=== PATIENT | female | born 1940 | race Caucasian/White ===

== ENCOUNTER → 2017-07-06 | Outpatient (CLI) | payer OTHER ==
[~2017-07-06] MED LIST: AGGRENOX1 CAPSULE PO; AMITRIPTYLINE H10 M1 PO; AMITRIPTYLINE H10 MG PO; ASPERDRINK81 MG PO; ASPIRIN E.C.81 M1 PO; ASPIRIN EC325 MG PO; BACTROBAN NASAL1 G1 BOTH NARES; BIOTIN 5000MCG PO; BIOTIN5 M1 PO; Bactrim,Septra DS 80 PO; Biotin PO; CALCIUM 600 +1 EAC3 PO; CALCIUM600 MG PO; CELEBREX200 MG PO; CHOLESTYRAMINE L4 GM PO; CIPRO250 MG PO; CITALOPRAM HBR PO; CITALOPRAM HBR10 MG PO; CRESTOR10 MG PO; CRESTOR5 MG PO; CYANOCOBALAM1000 MCG PO; Ceftin PO; Cipro PO; DILANTIN100 MG PO; ELAVIL10 MG PO; ENDOCET 5-3251 EACH PO; Ecotrin PO; Elavil PO; FLAGYL500 MG PO; GLUCOPHAGE1000 MG PO; GLUCOPHAGE850 MG PO; HYDROCODON-ACE1 EACH PO; LIPITOR40 MG PO; LISINOPRIL-HCT1 EAC3 PO; LISINOPRIL10 MG PO; LITE COAT ASPI325 M1 PO; Lipitor PO; METFORMIN HCL1000 MG PO; METFORMIN HCL500 MG PO; METOPROLOL SUC200 MG PO; MULTIVITAMINS1 EAC2 PO; NEXIUM40 MG PO; OMEPRAZOLE40 M1 PO; PHENERGAN12.5 M1 PO; PHENYTOIN SODI100 M1 PO; PRILOSEC20 MG PO; PRINZIDE 20-121 EACH PO; Phenergan PO; TRICOR145 MG PO; TYLENOL REGULA325 MG PO; Tylenol Regular Stre PO; ZOFRAN4 MG PO
== END | disposition home or self-care (01) ==
DX: M17.11 Unilateral primary osteoarthritis, right knee (principal); R29.3 Abnormal posture; R26.2 Difficulty in walking, not elsewhere classified; M79.604 Pain in right leg; M25.561 Pain in right knee; M25.661 Stiffness of right knee, not elsewhere classified; M62.81 Muscle weakness (generalized); Z74.1 Need for assistance with personal care
CPT/HCPCS: 97110 GP; 97150 GO; 97161 GP; 97165 GO; G8978 GP; G8979 GP; G8980 GP; G8987 GO; G8988 GO; G8989 GO

== ENCOUNTER 2017-08-08 22:02 | Inpatient (IN) | payer OTHER ==
[~2017-08-08] VITALS: Ht 165.1 cm; Wt 82.3 kg
[~2017-08-08 22:02] MED LIST changes: +IRON325 M1 PO
[2017-08-09 09:03] LABS: POINT-OF-CARE METER ID UU14174212
[2017-08-09 09:46] VITALS: BP 160/69
[2017-08-09 09:52] VITALS: BP 160/69
[2017-08-09 16:03] LABS: POINT-OF-CARE METER ID UU13113675
[2017-08-09 16:31] VITALS: BP 135/62
[2017-08-09 19:34] VITALS: BP 158/65
[2017-08-10 00:22] VITALS: BP 140/76
[2017-08-10 04:23] VITALS: BP 152/61
[2017-08-10 06:38] LABS: HEMATOCRIT 32.3 % (36.0-46.0); MCV 97.3 FL (83-99)
[2017-08-10 07:06] LABS: ANION GAP 10 MEQ/L (2-14); CHLORIDE 100 MEQ/L (99-109); GFR ESTIMATE (CALCULATED) > 59 mL/min/; GLUCOSE 140 mg/dL (70-99); POTASSIUM 4.3 MEQ/L (3.7-5.4); SAMPLE HEMOLYSIS CHECK 0; SAMPLE ICTERIC CHECK 0; SAMPLE LIPEMIA CHECK 0; SODIUM 137 MEQ/L (136-147); UREA NITROGEN (BUN) 13 mg/dL (9-23)
[2017-08-10 07:59] LABS: POINT-OF-CARE METER ID UU13113712
[2017-08-10 08:22] VITALS: BP 120/56
[2017-08-10 11:48] LABS: POINT-OF-CARE METER ID UU13113712
[2017-08-10 15:46] VITALS: BP 117/58
[2017-08-10 16:12] LABS: POINT-OF-CARE METER ID UU13113712
[2017-08-10 19:47] VITALS: BP 136/63
[2017-08-11 00:31] VITALS: BP 143/64
[2017-08-11 04:12] VITALS: BP 149/66
[2017-08-11 05:32] LABS: HEMATOCRIT 30.3 % (36.0-46.0); MCV 95.6 FL (83-99)
[2017-08-11 07:31] LABS: POINT-OF-CARE METER ID UU13113712
[2017-08-11 08:15] VITALS: BP 105/59
[2017-08-11] MEDS ORDERED: LOVENOX40 MG/0.4 SC (08:38)
[2017-08-11] MEDS ORDERED: ENDOCET 5-3251 EACH PO (08:39)
== END 2017-08-11 14:39 | DRG 470 ==
LOC: ENRESERV 22:02 → 2SOUTH 08-09 08:12 → 3WEST 08-09 08:12 → 2SOUTH 08-09 13:19 → 3WEST 08-09 16:14
PROVIDERS: Orthopaedic Surgery
PROC: 0SRC0J9 Replacement of Right Knee Joint with Synthetic Substitute, Cemented, Open Approach (ICD-10-PCS; principal; 2017-08-09)
DX: M17.11 Unilateral primary osteoarthritis, right knee (principal); M65.9 Synovitis and tenosynovitis, unspecified; E11.9 Type 2 diabetes mellitus without complications; K21.9 Gastro-esophageal reflux disease without esophagitis; G40.909 Epilepsy, unspecified, not intractable, without status epilepticus; E78.5 Hyperlipidemia, unspecified; E78.00 Pure hypercholesterolemia, unspecified; Z86.73 Personal history of transient ischemic attack (TIA), and cerebral infarction without residual deficits; Z87.891 Personal history of nicotine dependence
CPT/HCPCS: 36415; 80048; 82948; 85014; 85018; 86850; 86900; 86901; C1713; J0131; J0690; J1170; J1650; J1885; J2250; J2405; J7050; J7120

== ENCOUNTER 2018-04-26 16:01 | Inpatient (IN) | payer OTHER ==
[~2018-04-26] VITALS: Ht 165.1 cm; Wt 71.3 kg
[~2018-04-26 16:01] MED LIST changes: +LOVENOX40 MG/0.4 SC
[2018-04-26 17:26] LABS: BASOPHIL (%) 0.4 % (0-1); EOSINOPHIL (%) 0.8 % (0-5); EOSINOPHIL COUNT 0.1 K/uL (0-0.3); HEMATOCRIT 40.1 % (36.0-46.0); HEMOGLOBIN 13.8 G/DL (11.9-15.5); IMMATURE GRANULOCYTE (%) 0.2 % (0.0-0.7); LYMPHOCYTE (%) 36.3 % (15-42); MCH 32.5 PG (29.0-34.0); MCHC 34.4 G/DL (30.0-36.0); MCV 94.4 FL (83-99); MONOCYTE COUNT 0.6 K/uL (0-0.8); NEUTROPHIL (%) 55.3 % (45-76); NEUTROPHIL COUNT 4.6 K/uL (1.8-6.4); PLATELET COUNT 201 K/uL (156-360); RBC DIS.WIDTH-CV 12.7 % (11.8-14.6); RBC DIS.WIDTH-SD 43.4 % (39-53); RED BLOOD COUNT 4.25 M/uL (3.80-5.20); WHITE BLOOD COUNT 8.3 K/uL (4.1-10.2)
[2018-04-26 17:32] LABS: INTER. NORMALIZED RATIO 1.1
[2018-04-26 17:34] LABS: PTT 23.2 SEC (25-37)
[2018-04-26 17:40] LABS: APPEARANCE CLEAR ((CLEAR)); BILIRUBIN NEGATIVE; BLOOD NEGATIVE; COLOR YELLOW ((YELLOW)); GLUCOSE (STRIP) NEGATIVE; KETONES NEGATIVE; LEUKOCYTES TRACE; NITRITE NEGATIVE; PROTEIN (STRIP) NEGATIVE; SPECIFIC GRAVITY 1.006 (1.000-1.030); UROBILINOGEN 0.2 MG/DL (0.2-1.0)
[2018-04-26 17:43] LABS: CREATINE KINASE 54 IU/L (1-294); TOTAL CK 54 IU/L (1-294)
[2018-04-26 17:45] LABS: BACTERIA RARE /HPF; EPITHELIAL CELLS RARE /HPF; MUCUS NONE SEEN /LPF; RED BLOOD CELLS 0-5 /HPF (0-5); UCUL ADDED? YES
[2018-04-26 17:48] LABS: TROP-I INTERPRETATION NEGATIVE; TROPONIN-I < 0.01 ng/mL (0.0-0.30)
[2018-04-26 17:49] LABS: CK-MB 0.7 ng/mL (0.0-4.9); CKMB RELATIVE INDEX 1.3 (0.0-3.9)
[2018-04-26 18:27] LABS: CHLORIDE 99 MEQ/L (99-109); CREATININE 0.9 MG/DL (0.6-1.3); GFR ESTIMATE (CALCULATED) > 59 mL/min/; GLUCOSE 92 mg/dL (70-99); POTASSIUM 4.4 MEQ/L (3.7-5.4); SODIUM 137 MEQ/L (136-147); UREA NITROGEN (BUN) 13 mg/dL (9-23)
[2018-04-26] MEDS ORDERED: LO-DOSE ASPIRIN81 M1 PO (19:32)
[2018-04-26 19:48] LABS: ALBUMIN 4.2 G/DL (3.2-4.8); ALKALINE PHOSPHATASE 121 IU/L (3-129); ALT (GPT) 23 IU/L (3-49); AST (GOT) 31 IU/L (2-34); DIRECT BILIRUBIN 0.2 mg/dL (0.0-0.3); TOTAL BILIRUBIN 0.5 MG/DL (0.0-1.0)
[2018-04-27 00:38] LABS: APPEARANCE SL.HAZY ((CLEAR)); BILIRUBIN NEGATIVE; BLOOD NEGATIVE; COLOR YELLOW ((YELLOW)); GLUCOSE (STRIP) NEGATIVE; KETONES NEGATIVE; LEUKOCYTES SMALL; NITRITE POSITIVE; PROTEIN (STRIP) NEGATIVE; SPECIFIC GRAVITY 1.009 (1.000-1.030); UROBILINOGEN 0.2 MG/DL (0.2-1.0)
[2018-04-27 00:44] LABS: UCUL ADDED? YES
[2018-04-27 01:10] VITALS: BP 162/72
[2018-04-27 06:11] LABS: HEMATOCRIT 39.5 % (36.0-46.0); HEMOGLOBIN 13.1 G/DL (11.9-15.5); MCH 31.7 PG (29.0-34.0); MCHC 33.2 G/DL (30.0-36.0); MCV 95.6 FL (83-99); PLATELET COUNT 177 K/uL (156-360); RBC DIS.WIDTH-CV 12.7 % (11.8-14.6); RBC DIS.WIDTH-SD 44.7 % (39-53); RED BLOOD COUNT 4.13 M/uL (3.80-5.20); WHITE BLOOD COUNT 7.3 K/uL (4.1-10.2)
[2018-04-27 06:57] LABS: CHLORIDE 101 MEQ/L (99-109); CREATININE 0.8 MG/DL (0.6-1.3); GFR ESTIMATE (CALCULATED) > 59 mL/min/; GLUCOSE 81 mg/dL (70-99); SODIUM 140 MEQ/L (136-147); UREA NITROGEN (BUN) 12 mg/dL (9-23)
[2018-04-27 07:10] VITALS: BP 141/65
[2018-04-27 11:08] VITALS: BP 174/74
[2018-04-27 15:15] VITALS: BP 134/61
[2018-04-27 19:35] VITALS: BP 107/55
[2018-04-27 23:12] VITALS: BP 131/66
[2018-04-28 03:45] VITALS: BP 133/64
[2018-04-28 05:20] LABS: BASOPHIL (%) 0.6 % (0-1); EOSINOPHIL (%) 2.1 % (0-5); EOSINOPHIL COUNT 0.1 K/uL (0-0.3); HEMATOCRIT 39.6 % (36.0-46.0); HEMOGLOBIN 13.2 G/DL (11.9-15.5); IMMATURE GRANULOCYTE (%) 0.4 % (0.0-0.7); LYMPHOCYTE (%) 34.7 % (15-42); LYMPHOCYTE COUNT 1.8 K/uL (1.0-2.8); MCHC 33.3 G/DL (30.0-36.0); MCV 96.1 FL (83-99); MONOCYTE (%) 6.7 % (3-12); MONOCYTE COUNT 0.4 K/uL (0-0.8); NEUTROPHIL (%) 55.5 % (45-76); NEUTROPHIL COUNT 2.9 K/uL (1.8-6.4); PLATELET COUNT 173 K/uL (156-360); RBC DIS.WIDTH-CV 12.6 % (11.8-14.6); RBC DIS.WIDTH-SD 45.2 % (39-53); RED BLOOD COUNT 4.12 M/uL (3.80-5.20); WHITE BLOOD COUNT 5.3 K/uL (4.1-10.2)
[2018-04-28 06:19] LABS: ALBUMIN 3.9 G/DL (3.2-4.8); ALKALINE PHOSPHATASE 103 IU/L (3-129); ALT (GPT) 21 IU/L (3-49); AST (GOT) 25 IU/L (2-34); CHLORIDE 103 MEQ/L (99-109); CREATININE 0.7 MG/DL (0.6-1.3); GFR ESTIMATE (CALCULATED) > 59 mL/min/; GLUCOSE 94 mg/dL (70-99); POTASSIUM 3.9 MEQ/L (3.7-5.4); SODIUM 140 MEQ/L (136-147); TOTAL BILIRUBIN 0.4 MG/DL (0.0-1.0); TOTAL PROTEIN 6.2 G/DL (6.4-8.3); UREA NITROGEN (BUN) 8 mg/dL (9-23)
[2018-04-28 07:39] VITALS: BP 130/64
[2018-04-28 12:43] VITALS: BP 139/64
[2018-04-28 15:42] VITALS: BP 121/69
[2018-04-28 19:28] VITALS: BP 125/59
[2018-04-28 23:51] VITALS: BP 166/80
[2018-04-29 05:47] LABS: BASOPHIL (%) 0.3 % (0-1); EOSINOPHIL (%) 1.6 % (0-5); EOSINOPHIL COUNT 0.1 K/uL (0-0.3); HEMOGLOBIN 12.8 G/DL (11.9-15.5); IMMATURE GRANULOCYTE (%) 0.2 % (0.0-0.7); LYMPHOCYTE (%) 24.3 % (15-42); LYMPHOCYTE COUNT 2.1 K/uL (1.0-2.8); MCH 31.7 PG (29.0-34.0); MCHC 33.7 G/DL (30.0-36.0); MCV 94.1 FL (83-99); MONOCYTE (%) 7.4 % (3-12); MONOCYTE COUNT 0.7 K/uL (0-0.8); NEUTROPHIL (%) 66.2 % (45-76); NEUTROPHIL COUNT 5.8 K/uL (1.8-6.4); PLATELET COUNT 172 K/uL (156-360); RBC DIS.WIDTH-CV 12.5 % (11.8-14.6); RBC DIS.WIDTH-SD 43.4 % (39-53); RED BLOOD COUNT 4.04 M/uL (3.80-5.20); WHITE BLOOD COUNT 8.8 K/uL (4.1-10.2)
[2018-04-29 06:10] LABS: CHLORIDE 103 MEQ/L (99-109); CREATININE 0.7 MG/DL (0.6-1.3); GFR ESTIMATE (CALCULATED) > 59 mL/min/; GLUCOSE 95 mg/dL (70-99); POTASSIUM 3.8 MEQ/L (3.7-5.4); SODIUM 139 MEQ/L (136-147); UREA NITROGEN (BUN) 9 mg/dL (9-23)
[2018-04-29 07:41] VITALS: BP 141/66
[2018-04-29 15:31] VITALS: BP 102/45
[2018-04-30] VITALS: BP 121/55
[2018-04-30 05:39] LABS: BASOPHIL (%) 0.3 % (0-1); EOSINOPHIL (%) 0.3 % (0-5); HEMATOCRIT 36.4 % (36.0-46.0); HEMOGLOBIN 12.4 G/DL (11.9-15.5); IMMATURE GRANULOCYTE (%) 0.3 % (0.0-0.7); LYMPHOCYTE (%) 24.7 % (15-42); LYMPHOCYTE COUNT 2.4 K/uL (1.0-2.8); MCHC 34.1 G/DL (30.0-36.0); MCV 94.1 FL (83-99); NEUTROPHIL (%) 64.4 % (45-76); NEUTROPHIL COUNT 6.2 K/uL (1.8-6.4); PLATELET COUNT 173 K/uL (156-360); RBC DIS.WIDTH-CV 12.6 % (11.8-14.6); RBC DIS.WIDTH-SD 43.8 % (39-53); RED BLOOD COUNT 3.87 M/uL (3.80-5.20); WHITE BLOOD COUNT 9.7 K/uL (4.1-10.2)
[2018-04-30 06:00] LABS: CHLORIDE 100 MEQ/L (99-109); CREATININE 0.9 MG/DL (0.6-1.3); GFR ESTIMATE (CALCULATED) > 59 mL/min/; GLUCOSE 110 mg/dL (70-99); POTASSIUM 3.9 MEQ/L (3.7-5.4); SODIUM 137 MEQ/L (136-147); UREA NITROGEN (BUN) 13 mg/dL (9-23)
[2018-04-30 07:04] VITALS: BP 102/85
[2018-04-30] MEDS ORDERED: VENTOLIN HFA18 GM IH (12:52)
[2018-04-30] MEDS ORDERED: DILANTIN100 MG PO (12:53)
[2018-04-30] MEDS ORDERED: LAMICTAL25 MG PO (12:54)
[2018-04-30 14:03] VITALS: BP 111/54
== END 2018-04-30 14:35 | DRG 71 ==
LOC: EME 16:01 → 5SOUTH 22:15 → EDOF 22:15 → ENRESERV 22:21 → 5SOUTH 04-27 00:55
PROVIDERS: Emergency Medicine; Hospitalist; Internal Medicine
DX: G93.41 Metabolic encephalopathy (principal); T42.0X5A Adverse effect of hydantoin derivatives, initial encounter; E87.1 Hypo-osmolality and hyponatremia; H55.09 Other forms of nystagmus; R26.0 Ataxic gait; N39.0 Urinary tract infection, site not specified; G40.919 Epilepsy, unspecified, intractable, without status epilepticus; I69.398 Other sequelae of cerebral infarction; I10 Essential (primary) hypertension; E11.9 Type 2 diabetes mellitus without complications; K21.9 Gastro-esophageal reflux disease without esophagitis; J45.909 Unspecified asthma, uncomplicated; M17.11 Unilateral primary osteoarthritis, right knee; Z96.651 Presence of right artificial knee joint; Z90.13 Acquired absence of bilateral breasts and nipples; Z85.3 Personal history of malignant neoplasm of breast; Z87.891 Personal history of nicotine dependence
CPT/HCPCS: 70450; 80048; 80053; 80076; 80185; 81003; 82550; 82553; 83735; 84484; 85025; 85027; 85610; 85730; 87086; 93005; 95819; 99202; 99281; 99285; J1644; J7030